=== PATIENT | female | born 1950 | race Caucasian/White ===

== ENCOUNTER → 2018-07-11 12:12 | Outpatient (CLI) | payer MEDICARE, SELFPAY ==
--- NOTE | 2018-07-11 12:27 | XR_ITS ---
XR knee LT 3V HISTORY: ITS.REASON: LT KNEE PAIN ORDERING PHYSICIAN: Khurram Melendez MD PATIENT AGE: 68 years COMPARISON: None FINDINGS: Mild to moderate osteoarthritic changes are present at the medial compartment and patellofemoral joint with a small knee joint effusion in the suprapatellar region. No fracture or dislocation. IMPRESSION: Mild to moderate osteoarthritis of the medial compartment and patellofemoral joint with a joint effusion
== END ==
PROVIDERS: PCP Family Medicine; Visit Provider Family Medicine
DX: M25.562 Pain in left knee (principal)
CPT/HCPCS: 73562

== ENCOUNTER → 2019-03-28 09:20 | Outpatient (CLI) | payer MEDICARE, SELFPAY ==
--- NOTE | 2019-03-28 09:27 | XR_ITS ---
XR knee LT 4V HISTORY: ITS.REASON: left knee pain ORDERING PHYSICIAN: Christoph Gooden MD PATIENT AGE: 68 years COMPARISON: 07/11/2018 FINDINGS: There are moderate to severe osteoarthritic changes of the medial compartment with mild osteoarthritis of the lateral compartment and patellofemoral joint. Bony spurring is noted there is a small suprapatellar effusion suspected. IMPRESSION: Moderate to severe osteoarthritis of the left knee. The joint space narrowing medially is more prominent on today's exam however, this study was performed with weightbearing as opposed to nonweightbearing on the previous exam.
== END ==
PROVIDERS: PCP Family Medicine; Visit Provider Orthopaedic Surgery
DX: M25.562 Pain in left knee (principal)
CPT/HCPCS: 73564

== ENCOUNTER 2019-07-27 09:07 | Outpatient (RCR) | payer MEDICARE, SELFPAY ==
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
== END 2019-07-27 09:10 | disposition home or self-care (01) ==
LOC: PT 09:07
PROVIDERS: PCP Family Medicine; Visit Provider Emergency Medicine
DX: T22.221A Burn of second degree of right elbow, initial encounter (principal)
CPT/HCPCS: 97162

== ENCOUNTER → 2019-08-08 10:51 | Outpatient (CLI) | payer MEDICARE, SELFPAY ==
--- NOTE | 2019-08-08 11:07 | ECG_ITS ---
APPROVED REPORT Exam: Resting ECG HR:75 bpm ECG Measurements Heart Rate 75 AXES PA 144 P 61 QRSd 86 QRS 8 QT 386 T 19 QTc 431 <Conclusion> Normal sinus rhythm Normal ECG Electronically signed by : Andrés Levine, 08/08/2019 19:57:12
--- NOTE | 2019-08-08 11:10 | XR_ITS ---
PROCEDURE: XR CHEST 2V CLINICAL HISTORY: COUGH Cough, shortness of air COMPARISON: No exams were available for comparison FINDINGS: The cardiomediastinal silhouette and pulmonary vascularity are within normal limits. The lungs are clear without infiltrates, suspicious nodules, or pleural effusions. There is mild thoracic kyphosis with minimal wedging involving T5-T6 and T7 which may be chronic. IMPRESSION: No acute finding. Mild thoracic kyphosis Dictated by: Jeffrey Diaz MD 08/08/2019 17:01 Electronically signed by Jeffrey Diaz MD in [place] 08/08/2019 17:01
== END ==
PROVIDERS: PCP Family Medicine; Visit Provider Family Medicine
DX: Z01.818 Encounter for other preprocedural examination (principal)
CPT/HCPCS: 71046; 93005

== ENCOUNTER → 2019-08-30 12:16 | Outpatient (CLI) | payer MEDICARE, SELFPAY ==
[2019-08-30 12:20] LABS: Microscopic, Urine URINE MICROSCOPIC (MICROSCOPIC)
--- NOTE | 2019-08-30 12:28 | XR_ITS ---
PROCEDURE: XR KNEE LT 4V CLINICAL INDICATION: OSTEOARTHRITIS, KNEE PAIN COMPARISON: [id number] XR knee LT 3V from 07/11/2018 FINDINGS: No fracture or dislocation. No lytic or blastic change. There is normal mineralization. There is severe narrowing of the medial joint compartment with borderline mild varus angulation along with medial femoral condyle and small medial tibial plateau spur. Other findings:There is mild increased density in the suprapatellar bursa. IMPRESSION: Medial compartment osteoarthritis with mild varus angulation. Small joint effusion. Dictated by: Davis Laureano 08/30/2019 12:58 Electronically signed by Davis Laureano in [place] 08/30/2019 12:58
[2019-08-30 13:05] LABS: Basophils % 0.3 % (0.1-2.0); Eosinophils % 0.1 % (0.1-12.0); Hematocrit 47.4 % (37.0-47.0); Hemoglobin 14.9 g/dL (12.2-16.2); Lymphocytes # 1.4 K/mm3 (0.7-4.5); Lymphocytes % 29.1 % (10-50); Mean Corpuscular HGB Conc 31.4 g/dL (31.8-35.4); Mean Corpuscular Hemoglobin 30.2 pg (27.0-31.2); Mean Platelet Volume 8.1 fl (7.4-10.4); Monocytes # 0.3 K/mm3 (0.1-1.0); Monocytes % 6.7 % (1.7-9.3); Neutrophils % 63.9 % (37.0-80.0); Platelet Count 291 K/mm3 (142-424); Red Blood Count 4.94 M/mm3 (4.20-5.40); Red Cell Distribution Width 13.9 % (11.5-17.5); White Blood Count 4.7 K/mm3 (4.8-10.8)
[2019-08-30 13:59] LABS: Appearance,Urine CLEAR (Clear); Bilirubin,Urine Negative (Negative); Blood, Urine Negative (Negative); Color,Urine YELLOW (Yellow); Glucose,Urine (UA) Negative (Negative); Ketones,Urine Negative (Negative); Leukocyte Esterase,Urine Negative (Negative); Nitrate,Urine Negative (Negative); Protein,Urine Negative (Negative); Urobilinogen,Urine 0.2 EU/dl (0.2)
[2019-08-30 14:15] LABS: Alanine Aminotransferase 19 U/L (12-78); Albumin Level 4.6 gm/dL (3.4-5.0); Albumin/Globulin Ratio 1.5 (1.1-1.8); Alkaline Phosphatase 78 U/L (46-116); Anion Gap 14.7 mEq/L (5-15); Aspartate Amino Transferase 17 U/L (15-37); Bilirubin,Total 0.8 mg/dL (0.2-1.0); Blood Urea Nitrogen 16 mg/dL (7-18); Calcium 8.7 mg/dL (8.5-10.1); Carbon Dioxide 29 mmol/L (21.0-32.0); Chloride 101 mmol/L (98-107); Creatinine,Serum 0.74 mg/dL (0.55-1.02); Estimated Glomerular Filt Rate 77 ml/min (>60); GFR (African American) 94 ML/MIN (>60); Globulin 3.1 gm/dl (1.3-3.2); Glucose 92 mg/dL (74-106); Potassium 3.7 mmoL/L (3.5-5.1); Sodium 141 mmol/L (136-145); Total Protein,Serum 7.7 gm/dL (6.4-8.2)
[2019-08-30 14:42] LABS: Squamous Epithelial Cell,Urine Occasional #/hpf (0-5); WBC,Urine Occasional #/hpf (0-3)
[2019-08-30 14:43] LABS: Bacteria,Urine Trace /lpf
== END ==
PROVIDERS: Visit Provider Orthopaedic Surgery
DX: Z01.818 Encounter for other preprocedural examination (principal); M17.12 Unilateral primary osteoarthritis, left knee
CPT/HCPCS: 36415; 73564; 80053; 81001; 85025

== ENCOUNTER → 2019-09-09 10:12 | Outpatient (CLI) | payer MEDICARE, SELFPAY | PROVIDERS: Visit Provider Orthopaedic Surgery | DX: Z01.818 Encounter for other preprocedural examination (principal); M17.12 Unilateral primary osteoarthritis, left knee | CPT/HCPCS: 36415; 86850 ==

== ENCOUNTER 2019-09-11 07:42 | Observation (INO) ==
--- NOTE | 2019-09-11 08:35 | Progress Note ---
[facility] Anesthesia Checklist - Structural Data Admitted From: Home Planned Operative Procedure/s: l TKA Consent for Planned Operative Procedure(s) Verified: Yes - Additional verifications Anesthesia Reactions: No Hx Blood Transfusions: No Blood Transfusion Reaction: No - Airway Assessment C-Spine Mobility Assessed: Yes TMJ Mobility Assessed: Yes Dentition: Good Dentition - Neurological Assessment Level of Consciousness: Awake, Alert, Appropriate - Anesthesia Plan Anesthesia Risk discussed: Yes Anesthesia Plan: Verified ASA Class: II Anesthesia Type: General - Preoperative Comments Pre-Operative Comments: discussed fem sciatic block w pt, pt agrees to proceed [facility] History I have reviewed the patient's past medical history: Yes Medical History: Reports:: Cancer (left breast), Hyperlipidemia Denies:: Diabetes Mellitus Type 1, Diabetes Mellitus Type 2, Internal Pacemaker, Seizures *Have you ever received a pneumonia vaccine?: Yes *Have you received a flu vaccine this season?: No Other Medical History: Reports: Arthritis, Thyroid Disease. Denies: Blood Transfusion Reaction Anesthesia experience/problems:: none Laterality Cases: Right: Arthroscopy Knee, Lumpectomy Other Surgeries: Yes: Appendectomy, Cholecystectomy, Hysterectomy-Total. No: Pacemaker Amputation: No Fractures: No - *Social History Educational Level: Completed High School Smoking Status: Never smoker Alcohol Intake: never Substance Use Type: denies use *Occupational Status:: retired Housing: house Household Members: spouse *Travel in the last 8 weeks: None Family Hx:: No significant family history
--- NOTE | 2019-09-11 13:38 | Progress Note ---
[facility] Anesthesia Record Part I Intake, IV Amount: 3,000 Estimated blood loss (mL): 25 Urine output (mL): 400 Blood Pressure: 120/78 SaO2: 96 Pulse Rate: 89 Respiratory Rate: 12 Temperature: 97.5 F Patient is:: Awake, Stable Stable to PACU at:: 13:35
--- NOTE | 2019-09-11 13:38 | Progress Note ---
[facility] Anesthesia Record Part II Discharge Time: 13:35 Destination: floor PACU nurse assessment reviewed?: Yes Patient Condition:: Good Anesthesia Complications:: None Swallowing reflex intact?: Yes Cyanosis?: No
--- NOTE | 2019-09-11 14:53 | Operative Note ---
Date of procedure: 09/11/19 Pre-op Diagnosis:: Advanced osteoarthritis, left knee Post-op Diagnosis:: Same Procedure performed:: Cemented total knee arthroplasty, left Surgeon:: Christoph Gooden MD Railroad Signal Operator(s):: Ofelia Mcginnis VICE PRESIDENT:: Carlo Nicole Anesthesia: GETA, regional (Femoral and sciatic nerve blocks) Estimated blood loss (mL): 25 Clinical Note:: Patient is a 69-year-old female with end-stage osteoarthritis of the left knee with [id number] appearance over the medial compartment with a progressive varus deformity and flexion contracture presented with unremitting severe pain not relieved by conservative management. The pain is advanced to the point that it is becoming a hazard for her with risk of falling and injuring herself. A left total knee arthroplasty is indicated to relieve the pain, improve function, reduce the risk of falls and improve quality of life. Please refer to my office note for full details. Operative findings:: As noted on the preoperative evaluation, the knee joint had a 5 degrees of fixed flexion and fixed varus deformity. Preoperative knee range of flexion under anesthesia was 5-110 only. As seen on the x-rays, there are advanced degenerative changes over all 3 compartments with [id number] appearance over the medial compartment; the medial and patellofemoral compartments are the most severely involved of the 3 compartments. The menisci and cruciate ligaments are degenerate. There is extensive osteophyte formation over all 3 compartments. The intercondylar notch is almost obliterated and filled with osteophytes. Overall bone quality is good. Operative note:: On the day of the surgery the patient and her family were seen in the preoperative area. I have reviewed the clinical and x-ray findings with the patient. I again discussed the diagnosis, natural history and management options in detail including both nonsurgical and surgical. She has end-stage degenerative arthritis of her left knee and has failed to respond satisfactorily to conservative management so far and has opted for a left total knee arth roplasty. Her left knee joint is stiff and painful, and is limiting her mobility, ADLs and quality of life. Also her knee gives out and she is at risk of falls resulting in fractures. We again discussed the details of the procedure, risks and benefits and alternatives in detail. The complications discussed include but are not limited to infection, injury to nerves and blood vessels including injury to popliteal artery, injury to tendons and ligaments, DVT and PE, fat embolism, intraoperative fracture, limb length inequality, patella fracture, patellofemoral instability, patellar clunk syndrome, quadriceps and patellar tendon rupture, implant failure, component loosening, periprosthetic femur and tibia fractures, stiffness (arthrofibrosis), limp, incomplete relief of pain, incomplete functional recovery, likely need for further surgery in future including revision and anesthetic complications including heart attack, stroke and even . We also discussed about the likely need for blood transfusion and transfusion reactions. We discussed how any of these events can be devastating. We have discussed nonsurgical alternatives as well. Patient understands wishes to proceed with a left total knee arthroplasty and I believe that she is fully informed as to the risks, benefits, and alternatives including nonsurgical alternatives. We also discussed the postoperative course including the rehab and physical therapy required. She lives with her family and wants to go to go back home after surgery. A physical examination was performed and documented. Patient understood the risks, agreed to proceed with surgery, signed the consent form and no guarantees or assurances were given or implied. The limb was appropriately marked and initialed by me. The patient was then brought to the operating room and a general anesthesia was administered by the university manager. Prior to that she had femoral and sciatic nerve blocks in the pre-anesthetic area. The patient was then positioned supine on the operating table. All the bony prominences were appropriately padded. A well-padded tourniquet cuff was placed high over the upper thigh. The left knee was then prepped with isopropyl alcohol followed by chlorhexidine and draped in the usual sterile fashion. Prior to this, patient had used Hibiclens for a total of 5 days prior to the surgery and also used topical intranasal Bactroban. The entire operative team wore isolation suits and the Operating Room traffic was controlled. The skin incision was marked for a medial parapatellar approach to the knee joint. The entire operative site was sealed off with Ioban drape. A preprocedure timeout was performed as per hospital protocol. At the start of the procedure administration of prophylactic IV antibiotics (Ancef and vancomycin) was confirmed with the university manager. Also patient received 1 g of IV tranexamic acid before starting the procedure to reduce the postoperative blood loss. A preprocedure timeout was performed as per hospital protocol. The limb was exsanguinated with Esmarch bandage, the knee joint flexed beyond 90 and the tourniquet cuff was inflated to 325 mm Hg. Please see the nursing records for total tourniquet time. I then made a midline incision utilizing a #10 scalpel blade. Electrocautery was used to seal off subcutaneous vessels. The extensor mechanism was exposed, marked and a curvilinear incision made for a medial parapatellar approach using the scalpel blade. The patella was everted carefully and the fat pad resected to allow sufficient visualization of the proximal tibia. Extensive osteophyte formation was noted over all 3 compartments. The osteophytes were removed with rongeurs. The intercondylar notch was filled with osteophytes and the anterior cruciate ligament noted to be degenerate. The menisci were also degenerate and the anterior aspects of both menisci were resected. A medial release was performed with the knife and Brandie elevator. After finishing the medial release, I felt this to be somewhat more than what was needed. A step drill was used to open the intramedullary canal and the distal cutting guide was placed. The jig was pinned into position and the intramedullary guide rolando removed. The distal cut was made at 5 degrees of valgus and then the posterior referencing sizing jig was placed. The femur sized best at a size 7 femur for the Minnie persona system. Drill holes were made for the 4-in-1 cutting block in 3 degrees of external rotation. We then placed the 4-in-1 cutting block in position and the cross pins were added stabilizing the block. The abraham wing utilized to ensure notching of the anterior cortex would not occur. The anterior cut was made followed by the posterior cut then the posterior chamfer and finally the anterior chamfer cuts in that order. Soft tissue/collateral ligaments were protected throughout with careful retraction using the Z retractors. We checked for trueness of the cuts and then moved on to the tibia. The extra medullary guide was placed and aligned from the medial one third of the tibial tubercle down to the second metatarsal base. We pinned cutting block in position for minimal resection of the tibia from the medial side which was more severely involved with arthritis, checked the alignment, protected the soft tissues with appropriate retractors and resected with the Artesian saw. The resected tibial plateau articular surface was removed and sized it at a size E. We ensured correctness of the cut and correct posterior slope. We then checked the flexion and extension gaps and found them to be equal and well balanced. We trialed the femur and the tibia with a polyethylene insert and ranged the knee to ensure full flexion and extension and checked for ligamentous stability. We then everted the patella and measured the thickness with calipers. The patella measured 23 mm thick and a minimal resection (8mm) of the patella was carried out using the appropriate cutting guide. I then made the holes for a 3 pegged patellar button using the patella peg drill guide. We had lateralized the femur and medialized the patella intentionally for a better patellar tracking. We placed trial components and noted that a 14 mm polyethylene to fit best. This gave us appropriate range of motion with proper ligamentous stability. We allowed this to be free-floating and then checked it and made sure it was in appropriate position in relation to the tibial tubercle. We also used tibial alignment rolando to check for satisfactory position of the base plate and markings were made with electrocautery on the proximal tibia. We then elected to proceed with the box cut for a posterior stabilized femoral component. We placed the cutting jig for the box cut and perform the box cut using a reciprocating saw. I then completed the femoral preparation by making lug holes for the femoral component. We again trialed with the posterior stabilized polyethylene and found a 14 mm insert to fit best. This gave us appropriate range of motion with proper ligamentous stability in both flexion and extension. We then removed the trial components and using the laminar rn rehabilitation to distract the bones, we carefully resected the remaining portions of the medial and lateral menisci, removed the osteophytes from the posterior femoral condyles and the medial tibial plateau. I then pinned the tibial base plate to the top of the tibia in correct alignment and completed the drilling and broaching of the proximal tibia. We then removed the baseplate, placed an appropriately prepared bone plug into the hole in the distal femur. I then copiously irrigated the knee with pulse lavage and then dried the cut surfaces. We then cemented the tibial tray, the femoral component, and placed a 14 mm trial polyethylene insert and brought the knee into full extension. We then cemented the 3 pegged patella button and held it with a clamp. We allowed the cement to set and then inspected the knee joint and removed excess cement with an osteotome. We then placed the 14 mm definitive polyethylene tibial insert ensuring that the dovetails fit appropriately and that the polyethylene was down and seated into the tibial tray properly. The knee joint was put through range of motion and noted to be stable in both AP and ML direction; the patella was noted to be tracking appropriately with no thumb technique. The knee joint was then soaked with dilute Betadine (0.35 percent) solution for 3 minutes followed by suctioning of the solution and pulsatile lavage with the 1 L of normal saline. The tourniquet was deflated and hemostasis obtained with diathermy cautery. Another gram of tranexamic acid was given intravenously by the university manager at the time of deflating the tourniquet. The knee joint was again thoroughly irrigated with the pulse lavage and good hemostasis was confirmed before proceeding with wound closure. The capsule/extensor mechanism was closed with #1 Stratafix PDS running sutures ensuring a watertight closure. Next the subcutaneous tissue was closed with 2-0 Stratafix PDS running sutures. The skin was closed with subcuticular 3-0 Monocryl Stratafix sutures and Dermabond Prineo Skin Closure System. Sterile dressings were applied consisting of 4 x 4 gauze, ABDs, soft roll and secured in place with Bo wrap. No drains were placed. The patient was then transferred from the operating table onto the bed. The tibialis posterior and dorsalis pedis pulses were noted 2+ with good capillary refill in the foot. The patient was then reversed from the anesthetic and transported to the postoperative recovery area in a stable condition. Patient tolerated the procedure well and there were no immediate complications. The swab, needle and instrument counts were correct, according to the scrub team, at the end of the procedure. Portable x-rays of the left knee were obtained in the recovery area which showed the components were well fixed in a satisfactory position without any complications. The knee was placed in a knee immobilizer which should be continued when standing and walking, until she regains full quadriceps control. Postoperatively, institute and continue standard precautions and physical therapy for a standard total knee arthroplasty starting on postoperative day 1. Patient can be mobilized full weightbearing as tolerated. Implants: Minnie Persona, 5 degrees stemmed left tibial baseplate- size E Minnie Persona all poly-patellar component- 32 mm/8.5 mm Minnie Persona posterior stabilized standard femoral component, size 7 left Minnie Persona Vivacit-E highly cross-linked polyethylene posterior stabilized fixed bearing articular surface, left size E-F/PS x 14 mm Biomet Refobacin bone cement R x2. Industry sales representative door to door: Rob Camara (Minnie [employer]) Condition: stable Disposition: PACU Specimens:: None Complications:: None
--- NOTE | 2019-09-11 15:47 | Pharmacy Consult Notes ---
[facility] Pharmacy VTE Monitoring - Patient Demographics Admission date: 09/11/19 Report Date: 09/11/19 Time: 15:47 Allergies/Adverse Reactions: Patient Allergies No Known Allergies Allergy (Verified 09/08/19 14:27) Height: 1.7 m Weight: 85.23 kg - Prophylaxis VTE Prophylaxis Ordered?: Yes Types of VTE Prophylaxis: IPCS Thigh High, Pharmacological Pharmacologic Type: Other (XARELTO) - VTE Diagnosis Confirmed Treatment or plan recommended: Continue Current Treatment
[2019-09-12 06:14] LABS: Basophils % 0.2 % (0.1-2.0); Hematocrit 34.4 % (37.0-47.0); Hemoglobin 10.6 g/dL (12.2-16.2); Lymphocytes # 0.9 K/mm3 (0.7-4.5); Lymphocytes % 13.5 % (10-50); Mean Corpuscular HGB Conc 30.9 g/dL (31.8-35.4); Monocytes # 0.5 K/mm3 (0.1-1.0); Monocytes % 7.2 % (1.7-9.3); Neutrophils # 5.4 K/mm3 (1.8-7.8); Neutrophils % 79.1 % (37.0-80.0); Platelet Count 226 K/mm3 (142-424); Red Blood Count 3.55 M/mm3 (4.20-5.40); Red Cell Distribution Width 13.8 % (11.5-17.5); White Blood Count 6.9 K/mm3 (4.8-10.8)
[2019-09-12 06:23] LABS: Anion Gap 11.1 mEq/L (5-15); Calcium 8.1 mg/dL (8.5-10.1)
--- NOTE | 2019-09-12 16:55 | Progress Note ---
Subjective Date: 09/12/19 Time: 12:00 Principal diagnosis: Status post total knee arthroplasty, left Interval history: Patient is status post left total knee arthroplasty, postoperative day 1. Patient is lying down on the bed. Patient says she is doing well and reports that her pain is well controlled with medication. She says her nerve blocks did not last long and had significant pain yesterday after surgery. No history of any nausea or vomiting. No history of any cough, chest pain, shortness of breath or palpitations. Patient says she is eating and drinking well. She started physical therapy and has walked more than 50 feet with a walker. PN: Obj Ex Vital signs: Temp Pulse Resp BP Pulse Ox 98.7 F 93 H 17 101/52 L 94 L 09/12/19 16:00 09/12/19 16:00 09/12/19 16:00 09/12/19 16:00 09/12/19 16:00 Narrative: Laboratory Results - last 24 hr 09/12/19 05:30: WBC 6.9, RBC 3.55 L, Hgb 10.6 L, Hct 34.4 L, MCV 97.0, MCH 29.9, MCHC 30.9 L, RDW 13.8, Plt Count 226, MPV 9.0, Neut % (Auto) 79.1, Lymph % (Auto) 13.5, [place] % (Auto) 7.2, Eos % (Auto) 0.0 L, Baso % (Auto) 0.2, Neut # (Auto) 5.4, Lymph # (Auto) 0.9, [place] # (Auto) 0.5, Eos # (Auto) 0.0, Baso # (Auto) 0.0 09/12/19 05:30: Sodium 139, Potassium 4.1, Chloride 104, Carbon Dioxide 28, Anion Gap 11.1, BUN 12, Creatinine 0.82, Estimated Creat Clear 68, Estimated GFR 69, Est GFR ( Amer) 83, Glucose 119 H, Calcium 8.1 L Intake & Output 09/10/19 09/11/19 09/12/19 09/13/19 11:59 11:59 11:59 11:59 Intake Total 5127 / 5127 480 / 480 Output Total 850 / 850 Balance 4277 / 4277 480 / 480 Weight 185 lb 5 oz Exam: General appearance: alert, active, awake Cardiovascular: regular rate & rhythm, normal peripheral pulses; S1-S2 heard Respiratory: No respiratory distress noted, speaks in full sentences; lungs clear to auscultation; normal breath sounds ABD: soft and non tender; bowel sounds heard over all 4 quadrants Neuro: alert, awake, oriented x 3 Psych: normal mood and affect On examination of the lower extremities the limb lengths are equal. On examination of the left knee the dressings are clean, dry and intact. Calf is s oft and nontender. Distal pulses are 2+. Capillary refill is brisk. Sensation is intact to light touch throughout. She is actively moving the ankle, foot and the toes. - Urinary Catheter Management Logan Cath placed during this visit: yes Urethral indwelling: Yes Reason for continuing: Surgical procedure Insertion date: 09/11/19 Insertion time: 09:50 Progress Note: A&P (1) Osteoarthritis of left knee Status: Acute Current Visit: Yes (2) S/P total knee arthroplasty Status: Acute Current Visit: Yes (3) Hypothyroidism Status: Chronic Current Visit: Yes Assessment and Plan for All Diagnoses:: I have reviewed the clinical findings and progress with the patient and her . I have given her a paper copy of the postoperative x-rays. Advised her to avoid placing pillow behind the knee; use knee immobilizer when weightbearing and walking until she regains full quadriceps control and is able to actively straight leg raise. Continue PT/OT, standard protocol for a primary knee replacement. Discontinue IV fluids; continue DVT prophylaxis and as needed pain medication. Care management consult regarding discharge planning. Likely discharge home tomorrow if cleared by physical therapy.
--- NOTE | 2019-09-13 12:12 | Discharge Summary ---
General - General Admission date:: 09/11/19 Discharge date: 09/13/19 HPI HPI: Patient is a 69-year-old female with advanced degenerative joint disease of the left knee who is admitted to the hospital electively following an uncomplicated primary total knee arthroplasty on 09/11/2019. Prior to surgery patient had long-standing pain, stiffness and disability secondary to advanced degenerative arthritis in her left knee. She has not responded well to conservative management including NSAID, Tylenol, and intra-articular injections in the past. She is using assistive walking devices. Total knee arthroplasty is indicated to reduce the risk of falls, improve her pain and mobility and quality of life. The surgical and nonsurgical alternatives were discussed in detail with the patient as well as the risks and benefits of the surgery. She is fairly healthy and has a history of hypothyroidism and osteoarthritis. Hospital Course Hospital Course: Patient underwent an uncomplicated straightforward primary left total knee arthroplasty on 09/11/2019. Following surgery patient was admitted to hospital and progressed well without any complications. Her postoperative check x-ray was satisfactory with good alignment and fixation of the components. She progressed rapidly with physical therapy and was able to mobilize using a walker. After 2 days of hospital stay for observation, patient was discharged to home with self-care on 09/13/19. She is planning to do outpatient physical therapy at [facility]. At the time of discharge she has not yet regained good quadriceps control and is not able to actively straight leg raise. She has minimal pain and her pain is well controlled with as needed oral medication. The the incision is healthy and healing well. No signs of any erythema, induration or discharge noted. Patient was started on Xarelto 10 mg daily for DVT prophylaxis after surgery. Her neurovascular status in both lower extremities is intact. Pedal pulses 2+ bilaterally and fully sensate distally. No clinical evidence of DVT noted. Patient was cleared for discharge by physical therapy. On the day of discharge, the patient has been stable. Patient's vital signs have been stable throughout and she is afebrile at the time of discharge. She is being discharged home with family/self-care. She has outpatient physical therapy scheduled. Condition at discharge: improved and stable. Treatments and Procedures: Total knee arthroplasty, left knee; date of surgery 09/11/2019. Objective Vital signs: Temp Pulse Resp BP Pulse Ox 99.3 F 89 18 97/58 L 94 L 09/13/19 11:46 09/13/19 11:46 09/13/19 11:46 09/13/19 11:46 09/13/19 11:46 no acute distress, cooperative - *Routine HEENT Exam Head: Present: normocephalic, atraumatic Eye: Present: EOMI ENT: Present: mucous membranes moist - *Routine Neck Exam Present: supple, full ROM, trachea midline. Absent: lymphadenopathy - *Routine Respiratory Exam Present: CTA bilaterally - *Routine Cardiovascular Exam Present: RRR, Normal S1, Normal S2 - *Routine Abdominal Exam Present: soft, normoactive bowel sounds. Absent: tenderness - *Routine Extremities Exam Comments: On examination of the lower extremities the limb lengths are equal. On examination of the left knee the incision is clean, dry and healthy. No signs of infection or other complications are noted. There is minimal swelling and ecchymosis around the knee as to be expected at this stage. Knee range of movements is 5 to 80 degrees of flexion. She has not yet regained good quadriceps activation and is not about able to actively straight leg raise. Calf is soft and nontender. Distal pulses are 2+. Capillary refill is brisk. Sensation is intact to light touch throughout. She is actively moving the ankle, foot and the toes. No signs of DVT noted. - Routine Back/Spine/Pelvis Exam Back/Spine: Absent: CVA tenderness, vertebral tenderness - *Routine Skin Exam Present: intact, warm, normal turgor. Absent: rash - *Routine Neurological Exam Present: alert, oriented X3, CN II-XII intact, moving all extremities - Routine Psychiatric Exam Present: normal affect, normal thought process, cooperative DS: Diagnosis - Discharge Diagnosis (1) Osteoarthritis of left knee Status: Chronic (2) S/P total knee arthroplasty Start date: 09/11/19 Status: Acute (3) Hypothyroidism Status: Chronic Discharge Plan - Patient Discharge Instructions ACTIVITY: Continue current activity, Ambulate as tolerated DIET: advance to your usual diet Patient Instructions: DI for Knee Replacement, DI for Surgical Site Infection - Follow up Plan Follow up with: Christoph Gooden MD [Staff Physician] - 09/19/19 3:00 pm Disposition: Home, Self-Alf Medications: Home Medications Medication Instructions Recorded Confirmed Type levothyroxine 75 mcg capsule 75 mcg PO DAILY 03/31/19 09/08/19 History nabumetone 500 mg tablet 500 mg PO BID 03/31/19 09/08/19 History Ferrous Sulfate [Ferrous Sulfate 325 mg PO DAILY #90 tab 09/13/19 Rx 325mg Tablet] Hydrocod/Acet 5/325 mg [Cummings 1 - 2 tab PO Q4HP PRN #60 tab 09/13/19 Rx 5/325mg tablet] Rivaroxaban [Xarelto 10mg tablet] 10 mg PO QPMWM #14 tab 09/13/19 Rx Sennosides [Senokot 8.6mg tablet] 8.6 mg PO BIDP PRN #30 tab 09/13/19 Rx Prescriptions/Medication Reconciliation: New Ferrous Sulfate [Ferrous Sulfate 325mg Tablet] 325 mg PO DAILY #90 tab Sennosides [Senokot 8.6mg tablet] 8.6 mg PO BIDP PRN #30 tab PRN Reason: Constipation Rivaroxaban [Xarelto 10mg tablet] 10 mg PO QPMWM #14 tab Hydrocod/Acet 5/325 mg [Cummings 5/325mg tablet] 1 - 2 tab PO Q4HP PRN #60 tab PRN Reason: Moderate To Severe Pain Continued levothyroxine 75 mcg capsule 75 mcg PO DAILY Held nabumetone 500 mg tablet 500 mg PO BID - Problem Reconciliation Problems Reviewed?: Yes - Additional Information Additional Information: Our recommendations on discharge include physical therapy with weightbearing as tolerated and range of motion exercises of the left knee with emphasis on full extension and regaining flexion gradually. Patient will have outpatient physical therapy and has an appointment scheduled for this. Note is made that the patient easily extends the knee to 0 degrees and flexes to 140 degrees while she was under anesthesia for the total knee arthroplasty with the wound closed. I have strongly advised her not to place any pillow behind the knee. But she can place a pillow under the ankle thus allowing gravity/weight of the leg help the knee into full extension. Patient was also advised to keep the leg elevated and ice the knee/use Polar pack on a regular basis. At this stage it is permissible to take a shower and allow the incision to get wet with shower water. After padding the area dry, the wound can be left open. Routine application of occlusive dressings is not needed unless clinically indicated. Patient has Dermabond Prineo dressing in place and we have given her information leaflet regarding how to manage it at home. Patient will follow up with me in the office in approximately 1 week for wound check. Recommend 10 mg of Xarelto p.o. daily for 2 weeks for DVT prophylaxis. Please feel free to call our office at [phone] or via the hospital tape keller operator [phone] for any orthopaedic questions or concerns.
== END 2019-09-13 14:57 | disposition home or self-care (01) ==
LOC: OR 07:42 → 2ND 07:48 → INTOOBSV 07:48 → 2ND 14:13
PROVIDERS: ADMIT Orthopaedic Surgery; ATTEND Orthopaedic Surgery
CPT/HCPCS: 36415; 73560; 80048; 81001; 85025; 90686; 96374; 97110; 97116; 97161; 97166; 97530; C1713; C1776; G0378; J2405; J3370

== ENCOUNTER → 2019-09-19 09:57 | Outpatient (CLI) | payer MEDICARE, SELFPAY ==
--- NOTE | 2019-09-19 10:00 | XR_ITS ---
PROCEDURE: XR KNEE LT 2V CLINICAL INDICATION: sp 1 week lt tka Follow-up total knee arthroplasty COMPARISON: [id number] XR knee LT 3V from 07/11/2018 XR KNEE LT 4V from 08/30/2019 XR KNEE LT 2V from 09/11/2019 FINDINGS: Status post total knee arthroplasty. There is good alignment with no evidence of orthopedic complication. Postsurgical gas has resolved. Other findings:None. IMPRESSION: Good alignment status post total knee arthroplasty Dictated by: Jeffrey Diaz MD 09/19/2019 17:40 Electronically signed by Jeffrey Diaz MD in [place] 09/19/2019 17:40
== END ==
PROVIDERS: PCP Family Medicine; Visit Provider Orthopaedic Surgery
DX: M25.562 Pain in left knee; Z96.652 Presence of left artificial knee joint
CPT/HCPCS: 73560

== ENCOUNTER 2019-09-19 13:00 | Outpatient (RCR) | payer MEDICARE, SELFPAY | END 2019-09-19 13:20 | disposition home or self-care (01) | LOC: PT 13:00 | PROVIDERS: Visit Provider Orthopaedic Surgery | DX: M25.562 Pain in left knee (principal); Z96.652 Presence of left artificial knee joint | CPT/HCPCS: 97760 ==

== ENCOUNTER → 2019-10-30 11:19 | Outpatient (CLI) | payer MEDICARE, SELFPAY ==
--- NOTE | 2019-10-30 11:25 | XR_ITS ---
PROCEDURE: XR KNEE LT 2V CLINICAL INDICATION: sp LT TKA; dos 09/11/19 Follow-up total knee replacement COMPARISON: [id number] XR knee LT 3V from 07/11/2018 XR KNEE LT 4V from 08/30/2019 XR KNEE LT 2V from 09/11/2019 XR KNEE LT 2V from 09/19/2019 FINDINGS: Status post total knee replacement with good alignment. No fracture or dislocation. No orthopedic complications Other findings:None. IMPRESSION: Status post total knee replacement with good alignment Dictated by: Jeffrey Diaz MD 10/30/2019 17:49 Electronically signed by Jeffrey Diaz MD in [place] 10/30/2019 17:49
== END ==
PROVIDERS: PCP Family Medicine; Visit Provider Orthopaedic Surgery
DX: Z96.652 Presence of left artificial knee joint (principal); M25.562 Pain in left knee
CPT/HCPCS: 73560

== ENCOUNTER 2019-12-01 10:00 | Outpatient (RCR) | payer MEDICARE, SELFPAY ==
--- NOTE | 2019-09-15 10:44 | HMH.PTOPEV ---
PT Outpatient Evaluation Rehab PT Outpatient Evaluation Start: 09/15/19 10:31 Freq: Status: Active Protocol: Document 09/15/19 10:31 GALLITO (Rec: 09/15/19 10:43 GALLITO [id number]) Electronically Signed By Ji Hodge, PT 09/15/19 10:31 Outpatient Therapy Subjective History Subjective History Patient is a 69 year old female presenting to outpatient PT with reports of L post-sugical knee pain S/P L TKA performed 09/11/19 (4d S/ P). Pt reports hx of chronic knee pain starting approximately 6-7 years ago of insidious onset. Pt was admitted to [facility] for 2 days S/P for observation. Reviewed journal entry audit clerk TKA protocol, signs of infection and progression of HEP. Comorbidites include hypothyroidism, HTN and OA. Chief Complaint Pain,Stiff,Swelling,Weakness Symptom Type Ache,Burning Symptoms Relieved By Rest/Positioning,Ice, Prescription Meds Symptoms Aggravated By Standing,Physical Activity, Walking Prior Functional Limitations Housework,Standing,Squatting, Recreation Activity,Walking, Stairs Current Functional Limitations Housework,Sleeping,Standing, Squatting,Recreation Activity, Walking,Stairs,Balance Symptom Description Constant but Variable Level of pain today (0-10) 2 Pain scale - at its best (0-10) 2 Pain scale - at its worst (0-10) 10 Hip/Knee Eval Gait Observation General Gait Pattern Observation Antalgic Gait,Decrease Weight Bear (L) Assistive Device Assistive Devices Rolling / Wheeled Walker Palpation Tenderness left Knee Palpation Finding Tenderness Knee Palpation Overall Comment L medial compartment MMT Hip Strength Reason Not Measured Orthopedic Precautions Knee Strength Reason Not Measured Orthopedic Precautions ROM Hip ROM Reason Not Measured Within Functional Limits Knee Extension Active Range of Motion ( -4 degrees) Knee Extension Passive Range of Motion ( 0 degrees) Knee Flexion Active Range of Motion ( 64 degrees) Knee Flexion Passive Range of Motion ( 84 degrees) Knee ROM Limitations Soft Tissue Tightness Effusion joint ef
--- NOTE | 2019-11-01 10:39 | HMH.RHREAS ---
Rehab Reassessment Rehab OP Re-assessment Start: 11/01/19 09:16 Freq: Status: Active Protocol: Document 11/01/19 09:16 GALLITO (Rec: 11/01/19 10:39 GALLITO [id number]) Electronically Signed By Ji Hodge, PT 11/01/19 09:16 Rehab Re-assessment Subjective Subjective Pt reports 60% improvement since start of care. Objective Objective Notes PROM: 0-110 AROM: -4-102 MMT: hip flexion 4+/5; abd 4+/ 5; ext 4+/5; add 4/5; ER/IR 4+ /5 knee ext 4+/5; flexion 4+/5 Neuro WNL Special tests: negative Assessment Progress Assessment Progressing as Expected Assessment Notes Pt progressing well with Rx. She has been seen in PT for 14 visits to date. Rx has consisted of LLE strengthening , mobility and modalities for pain/inflammation. She continues to have moderate discomfort with manual therapy . She continues to present with difficulty with all standing/ambulatory activities resulting in functional limitations with household and self-care activites. She currently still requires a SPC for ambulation and safety. Patient goals met STG's Goals Not Met LTG's Revised Goals NA Plan Plan Continue with POC Frequency of Therapy 2x/week Duration of therapy 4 weeks. Time and Billing Re-Eval Time 15 Re-Eval Billing Units 1 PHYSICIAN CERTIFICATION: I certify the specified therapy services for [facility] Viera are required, authorized, and reviewed every 30 days.
== END 2019-12-01 10:05 | disposition home or self-care (01) ==
LOC: PT 10:00
PROVIDERS: PCP Family Medicine; Visit Provider Orthopaedic Surgery
DX: M17.12 Unilateral primary osteoarthritis, left knee (principal); Z96.652 Presence of left artificial knee joint
CPT/HCPCS: 97010; 97014; 97016; 97033; 97110; 97140; 97163; 97164; G0283

== ENCOUNTER 2020-04-13 11:44 | Emergency (ER) | payer MEDICARE, SELFPAY ==
[2020-04-13 11:45] VITALS: BP 131/85; PULSE 97; RESP 16; TEMP 37.1; O2SAT 96; BMI 24.3
[2020-04-13 12:03] VITALS: BMI 24.3
--- NOTE | 2020-04-13 12:03 | CT_ITS ---
PROCEDURE: CT HEAD/BRAIN WO CON Patient Age:69Y CLINICAL INDICATION: FALL head trauma. Struck with knot on left forehead. No LOC Left mastectomy presumably for breast cancer 35 years ago COMPARISON: CT CERVICAL SPINE WO CON from 04/13/2020 TECHNIQUE: No IV contrast. Standard axial images were obtained. All CT scans at the facility use one or more dose reduction, viz: automated exposure control, ma/kV adjustment per patient size (including targeted exams where dose is matched to indication, i.e. head), or iterative reconstruction technique. . FINDINGS: No acute intracranial findings. No intracranial hemorrhage. Minimal cerebral atrophy age-appropriate No hydrocephalus.The ventricles and basal cisterns appear clear and satisfactory. No mass or midline shift nor mass effect. No subdural or extra-axial fluid collection is evident. Posterior fossa unremarkable. Small focal hematoma with soft tissue swelling is seen at the far lateral left forehead. No underlying skull fracture. Hyperostosis frontalis interna noted.. Slight additional density skull bone at lateral left frontal bone along the anterior aspect superior coronal suture noted. Most likely this may reflect mild hyperostosis adjacent and related to the coronal suture with somewhat similar sclerosis adjacent to lambdoid suture. No expansion to further suggest additional additional blastic bone abnormality at this point, but ongoing mammography should be encouraged with given history . Nomastoid effusions. Mastoid air cells are well developed and clear. Middle ear clear. IAC's symmetric. Nosinus air-fluid level. Visualized portions of the paranasal sinuses and orbits unremarkable. IMPRESSION: No acute intracranial findings. Brain unremarkable for age Small focal scalp hematoma and swelling at the far lateral left forehead. No associated underlying skull fracture.. Benign hyperostosis frontalis interna . Minor asymmetric area increased bone density in superior most frontal bone adjacent to coronal suture-most likely reflects region of relative hyperostosis along the coronal suture. Dictated by: Melchor Weaver MD 04/13/2020 13:02 Electronically signed by Melchor Weaver MD in [place] 04/13/2020 13:02
--- NOTE | 2020-04-13 12:03 | CT_ITS ---
PROCEDURE: CT CERVICAL SPINE WO CON Patient Age:69Y CLINICAL INDICATION: FALL. Struck head with not left forehead. Head pain. No LOC. Neck discomfort COMPARISON: CT HEAD/BRAIN WO CON from 04/13/2020 TECHNIQUE: No IV contrast Helical axial images obtained with sagittal and coronal reformats. All CT scans at the facility use one or more dose reduction, viz: automated exposure control, ma/kV adjustment per patient size (including targeted exams where dose is matched to indication, i.e. head), or iterative reconstruction technique. The FINDINGS: No fracture nor subluxation seen at cervical spine. Normal prevertebral soft tissues.. Satisfactory alignment. No significant subluxation. Multilevel degenerative disc changes. Degenerative disc space narrowing most evident at C4/5 and to less degree C5/6. C4/5. Uncovertebral joint hypertrophy to the right. Degenerative cystic features inferior aspect C4 vertebra adjacent endplate reflecting disc space narrowing pronounced to the right at this level. C5/6 disc space narrowing posteriorly. Minor uncovertebral joint hypertrophy slightly more evident to the right. Again degenerative subchondral cyst inferior C5 just adjacent to the C5/6 endplate Facets with normal relationships and only mild degenerative changes. Neural foramen and vertebral bodies intact. Normal C1/C2 relationships. Apices of lungs are clear with no acute findings. Minor chronic change lung apices. Scattered nonspecific reactive nodes neck, with old benign appearing postinflammatory calcification at slight more generous left palatine tonsil.. Not of concern. IMPRESSION: Cervical spine intact with no acute fracture nor subluxation. Minimal degenerative changes C-spine,-as detailed in body of report. Dictated by: Melchor Weaver MD 04/13/2020 12:58 Electronically signed by Melchor Weaver MD in [place] 04/13/2020 12:58
--- NOTE | 2020-04-13 13:00 | HMH.EDFALL ---
ED Disposition Clinical Impression: Contusion Disposition: Home, Self-Care Condition on Discharge: Good Instructions: How to Prevent Falls Referrals: Khurram Melendez MD [Primary Care Provider] - - Critical Care Critical Care Time: No Attestation: On 04/13/20, the high probability of a clinically significant, sudden or life threatening deterioration of the following system(s) required my full and direct attention, intervention and personal management. The time I documented below is in addition to time spent performing reported procedures but includes the following listed in this critical care notation. Medical Decision Making - Medical Records Medical records reviewed: Yes: I reviewed the patient's medical records. - Shalom Inquiry Pt receiving controlled substance: No Vital Signs: 04/13/20 11:45 Temperature 98.7 F Temperature Source Oral Pulse Rate [Radial] 97 H Respiratory Rate 16 Blood Pressure [Right Arm] 131/85 Blood Pressure Mean [Right Arm] 100 Blood Pressure Source [Right Arm] Automatic Cuff Blood Pressure Position [Right Arm] Sitting 02 Sat by Pulse Oximetry 96 Oxygen Delivery Method Room Air - Lab Data Lab results reviewed: Yes: I reviewed the patient's lab results. Orders (Tests/Meds): ORDERS Category Date Time Status CT cervical spine wo con Stat Cat Scan 04/13/20 12:[address] head/brain wo con Stat Cat Scan 04/13/20 12:03 Taken - CT Data CT Scan: Head Time Received: 13:06 Preliminary Findings: Normal/NAD Fall HPI - General Chief Complaint: Fall Stated Complaint: AO 04/13/20 11:30 injury to head Time Seen by Provider: 04/13/20 13:00 Mode of Arrival: Ambulatory Source of Information: Patient Limitations: No Limitations Description of Symptoms (Recalled from ER Triage Doc. by RN): Walking round the driveway and tripped and fell. Hit head on concrete. No LOC. - History of Present Illness HPI Narrative: 69-year-old female presents the ED after a fall at home. Apparently she was walking around the corner outside she slipped on some uneven ground and fell. She stated that she tried not to land on her left knee because she just had a knee replacement 6 months ago and so she ended up hitting her head. Patient denied any loss of consciousness. Patient denied any loss of balance. Patient also denied any headache. - Related Data Home Medications Medication Instructions Recorded Confirmed levothyroxine 75 mcg capsule 75 mcg PO DAILY 03/31/19 12/12/19 nabumetone 500 mg tablet 500 mg PO BID 03/31/19 12/12/19 Previous Rx's Medication Instructions Recorded Ferrous Sulfate [Ferrous Sulfate 325 mg PO DAILY #90 tab 09/13/19 325mg Tablet] hydrocodone 5 mg-acetaminophen 325 1 tab PO Q8H PRN #30 tab 10/11/19 mg tablet Allergies Allergy/AdvReac Type Severity Reaction Status Date / Time No Known Allergies Allergy Verified 12/12/19 11:22 [facility] History - Hepatitis A Screen Drug use history?: No High risk sexual behaviors?: No History of sexually transmitted infection?: No Currently employed?: No Childcare worker?: No Do you have indoor plumbing?: Yes Do you have electricity?: Yes Attestation statement:: This patient has been screened for Hepatitis A risk factors. I have reviewed the patient's past medical history: Yes Medical History: Reports:: Cancer, Hyperlipidemia Denies:: Diabetes Mellitus Type 1, Diabetes Mellitus Type 2, Internal Pacemaker, Seizures Other Medical History: Reports: Arthritis, Thyroid Disease. Denies: Blood Transfusion Reaction Laterality Cases: Left: Mastectomy, Right: Arthroscopy Knee, Breast Biopsy, Lumpectomy Other Surgeries: Yes: Appendectomy, Cholecystectomy, Hysterectomy-Total. No: Pacemaker Amputation: No Fractures: No - Social History Educational Level: Completed High School Smoking Status: Never smoker Alcohol Intake: never Substance Use Type: denies use Occupational Status: disabled Housing: house
[2020-04-13 13:28] VITALS: BP 131/85; PULSE 97; RESP 16; TEMP 37.1; O2SAT 96
== END 2020-04-13 13:30 | disposition home or self-care (01) ==
PROVIDERS: Emergency Provider Family Medicine; PCP Family Medicine
DX: S00.03XA Contusion of scalp, initial encounter (principal); W01.0XXA Fall on same level from slipping, tripping and stumbling without subsequent striking against object, initial encounter; Y92.014 Private driveway to single-family (private) house as the place of occurrence of the external cause; E78.5 Hyperlipidemia, unspecified; E03.9 Hypothyroidism, unspecified; Z90.49 Acquired absence of other specified parts of digestive tract; Z90.79 Acquired absence of other genital organ(s); Z79.899 Other long term (current) drug therapy
CPT/HCPCS: 70450; 72125; 99282

== ENCOUNTER → 2020-04-18 08:55 | Outpatient (CLI) | payer MEDICARE, SELFPAY ==
--- NOTE | 2020-04-18 08:58 | XR_ITS ---
PROCEDURE: XR KNEE LT 2V CLINICAL INDICATION: left total knee Follow-up knee replacement COMPARISON: XR KNEE LT 4V from 08/30/2019 XR KNEE LT 2V from 09/11/2019 XR KNEE LT 2V from 09/19/2019 XR KNEE LT 2V from 10/30/2019 FINDINGS: Good alignment status post total knee replacement. No evidence of orthopedic complication. No acute fracture or dislocation. No lytic or blastic change. IMPRESSION: Good alignment status post total knee replacement Dictated by: Jeffrey Diaz MD 04/18/2020 09:29 Electronically signed by Jeffrey Diaz MD in [place] 04/18/2020 09:29
== END ==
PROVIDERS: PCP Family Medicine; Visit Provider Orthopaedic Surgery
DX: M25.562 Pain in left knee; Z96.652 Presence of left artificial knee joint
CPT/HCPCS: 73560

== ENCOUNTER → 2020-09-09 11:18 | Outpatient (CLI) | payer MEDICARE, SELFPAY ==
--- NOTE | 2020-09-09 11:22 | XR_ITS ---
PROCEDURE: XR KNEE LT 2V CLINICAL INDICATION: sp lt tka Follow-up knee replacement COMPARISON: CR XR KNEE LT 2V from 09/11/2019 DX XR KNEE LT 2V from 09/19/2019 CR XR KNEE LT 2V from 10/30/2019 CR XR KNEE LT 2V from 04/18/2020 FINDINGS: No fracture or dislocation. No lytic or blastic change. There is normal mineralization. Good alignment status post total knee replacement. No evidence of orthopedic complication. No acute fracture or dislocation. No lytic or blastic change. Other findings:None. IMPRESSION: Good alignment total knee replacement Dictated by: Jeffrey Diaz MD 09/09/2020 12:28 Jeffrey Diaz MD in [place] 09/09/2020 12:28
== END ==
PROVIDERS: PCP Family Medicine; Visit Provider Orthopaedic Surgery
DX: Z09 Encounter for follow-up examination after completed treatment for conditions other than malignant neoplasm (principal); M25.562 Pain in left knee; Z96.652 Presence of left artificial knee joint
CPT/HCPCS: 73560

== ENCOUNTER → 2021-08-11 11:03 | Outpatient (CLI) | payer MEDICARE, SELFPAY | PROVIDERS: Visit Provider Surgery | DX: Z01.812 Encounter for preprocedural laboratory examination (principal); Z20.822 Contact with and (suspected) exposure to COVID-19; Z12.11 Encounter for screening for malignant neoplasm of colon | CPT/HCPCS: C9803; U0003; U0005 ==

== ENCOUNTER 2021-08-13 07:24 | Day surgery (SDC) | payer MEDICARE, SELFPAY ==
[2021-08-11 14:56] VITALS: BMI 28.5
[2021-08-13 07:54] VITALS: PULSE 91; RESP 18; TEMP 36.9; O2SAT 98
[2021-08-13 08:12] VITALS: O2SAT 98
--- NOTE | 2021-08-13 08:52 | HMH.SCOPE ---
- Procedure: Date: 08/13/21 Patient Date of :: 1950 Procedure Performed:: Colonoscopy with polypectomy by snare x2 Indications:: Patient is a 71-year-old female who presents for colonoscopy. Primary care provider is Khurram Melendez MD. Patient's sister was diagnosed with colon cancer about 6 or 7 months ago. She also has a nephew that had colon cancer. Other cancers tend to run in the family. She did have a colonoscopy at least 6 years ago. Performing Provider:: Sal Dinero MD Referring Provider:: Khurram Melendez MD Sedation:: MAC sedation Procedure:: Patient was taken to endoscopy procedure room. She was positioned in lateral decubitus position. Adequate intravenous sedation was achieved with anesthesia titration of propofol. Variable stiffness Olympus colonoscope was inserted via the anus. Was advanced to the cecum with some minor difficulty due to floppiness and redundancy of the sigmoid colon. Ileocecal valve was clearly identified. Within the cecum she had a small adenomatous appearing 3 or 4 mm polyp removed with cold cutting snare. In the ascending colon there was a small to moderate approximately 6 mm polyp removed with cold cutting snare. Base of the polyp was biopsied with biopsy forceps. Hemoclip was deployed at the polypectomy site for good hemostasis. There was noted to be a submucosal lipoma in the ascending colon. Colonoscope was withdrawn through the remainder of the colon. She had significant sigmoid diverticulosis with chronic scarring but no evidence of any active diverticulitis. Retroflexion within the rectum revealed nonbleeding internal hemorrhoids. Colonoscope was withdrawn. Findings:: Adenomatous appearing polyps in the ascending and cecum Ascending colon submucosal lipoma Significant sigmoid diverticulosis Recommendations:: Pending the pathology likely repeat colonoscopy 3 years Complications:: None immediately apparent Estimated blood obtained (mL): 4
[2021-08-13 08:54] VITALS: BP 90/54; PULSE 80; RESP 18; TEMP 36.4; O2SAT 95
[2021-08-13 09:04] VITALS: BP 86/56; PULSE 81; RESP 18; TEMP 36.3; O2SAT 96
[2021-08-13 09:14] VITALS: BP 93/47; PULSE 93; RESP 18; O2SAT 96
[2021-08-13 09:34] VITALS: BP 120/84; PULSE 84; RESP 18; O2SAT 96
--- NOTE | 2021-08-13 10:05 | HMH.ANESCL ---
[facility] Anesthesia Checklist - Patient Identification Patient Identification: Arm Band, Verbal (Name & ) - Structural Data Admitted From: Long-term Nursing Facility Planned Operative Procedure/s: egd Consent for Planned Operative Procedure(s) Verified: Yes Verified Documents: History and Physical - NPO Status Verified Time NPO: 00:00 - Additional verifications Patient : No Anesthesia Reactions: No Hx Blood Transfusions: No Blood Transfusion Reaction: No Cephalosporin Allergy: No Previous Colonoscopy: No - Cardiovascular Assessment Heart Sounds: S1 & S2 Pulse Strength: Baseline Pulse Rhythm: Irregular Peripheral Edema: No - Airway Assessment C-Spine Mobility Assessed: Yes TMJ Mobility Assessed: Yes Dentition: Edentulous - Neurological Assessment Level of Consciousness: Awake, Alert, Appropriate Hx Seizures: No Numbness or tingling in extremities: No - Genitourinary Assessment 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 Denies: Blood Transfusion Reaction Anesthesia experience/problems:: none Laterality Cases: Left: Mastectomy, Right: Arthroscopy Knee, Breast Biopsy, Lumpectomy Other Surgeries: Yes: Appendectomy, Cholecystectomy, Colonoscopy, Hysterectomy-Total. No: Pacemaker Amputation: No Fractures: No - *Social History Last grade of school completed: High school graduate Smoking Status: Never smoker Alcohol Intake: never Substance Use Type: denies use *Occupational Status:: retired Housing: house Household Members: spouse *Travel in the last 8 weeks: None Family Hx:: Non-contributory
== END 2021-08-13 09:40 | disposition home or self-care (01) ==
LOC: OUTP 07:26
PROVIDERS: PCP Family Medicine; Visit Provider Surgery
PROC: 0DJD8ZZ Inspection of Lower Intestinal Tract, Via Natural or Artificial Opening Endoscopic (ICD-10-PCS; principal; 2021-08-13 08:30)
DX: Z12.11 Encounter for screening for malignant neoplasm of colon (principal); K57.32 Diverticulitis of large intestine without perforation or abscess without bleeding; Z80.0 Family history of malignant neoplasm of digestive organs; K63.5 Polyp of colon; D17.79 Benign lipomatous neoplasm of other sites; Z80.9 Family history of malignant neoplasm, unspecified; E78.5 Hyperlipidemia, unspecified; M19.90 Unspecified osteoarthritis, unspecified site; Z90.49 Acquired absence of other specified parts of digestive tract; E03.9 Hypothyroidism, unspecified; M17.12 Unilateral primary osteoarthritis, left knee; Z79.899 Other long term (current) drug therapy
CPT/HCPCS: 45385; 88305

== ENCOUNTER 2023-11-17 19:28 | Emergency (ER) | payer MEDICARE, SELFPAY ==
[2023-11-17 19:40] VITALS: BP 142/77; PULSE 100; RESP 18; TEMP 36.6; O2SAT 97; BMI 27.8
--- NOTE | 2023-11-17 19:53 | PC.NURSE ---
PC to [facility] for hand specialist
[2023-11-17 20:00] VITALS: BP 119/70; PULSE 95; O2SAT 95
--- NOTE | 2023-11-17 20:34 | HMH.EDGENADL ---
Discharge Plan Disposition Patient Disposition: Home, Self-Care Condition: Good Prescriptions Prescriptions: No Action levothyroxine 75 mcg capsule 75 mcg PO DAILY nabumetone 500 mg tablet 500 mg PO BID Hold Instructions: Resume on 09/29/19. Can restart if needed after finishing the anticoagulants (Xarelto). Referrals Follow up/Referrals: Khurram Melendez MD [Primary Care Provider] - See instructions Activity Restrictions/Add. Instructions Additional Instructions/Restrictions: You were evaluated in the emergency department today for jerry to your hands. Please keep your hands clean and dry. Expect that the blisters will pop and come off on their own. Apply soft dressings to the wounds daily to keep them dry. Do not submerge under any water. We are giving you bacitracin, which is an antibiotic ointment, free to apply to the wounds once the blisters have opened up. We would like for you to follow-up in plastic surgery burn clinic at [facility]. This is at [facility]. They will contact you with an appointment. Take Tylenol and ibuprofen at home as needed for pain. Return to the emergency department for new or worsening symptoms. Clinical Impressions Clinical Impression: 2nd deg burn hand Qualifiers: Encounter type: initial encounter Burn of hand location: multiple sites Instructions Patient Instructions: How to Take Care of a Burn, DI for Jerry, Jerry Discharge ED Provider: Rima Carter General Adult HPI General Chief complaint: Burn/Smoke Inhalation Stated complaint: AO 11/17, right hand jerry Time Seen by Provider: 11/17/23 19:29 Mode of Arrival: Ambulatory Source of Information: Patient Limitations: No Limitations Description of Symptoms (Recalled from ER Triage Doc. by RN): Pt ambulatory to ED with C/O burn to right hand and left index finger. Pt states she was cooking peanut brittle, poured baking soda in, and the liquid boiled over onto her hands. Pt immediately applied silver sulfadiazine to burned areas. Pt reports mild burning pain. History of Present Illness HPI narrative: This patient is a 73-year-old female with a history of hypothyroidism presenting to the emergency department for evaluation with concern for jerry to both of her hands. Patient reports that she was cooking peanut brittle when she poured baking soda and into the portal pulled over onto her hands. She suffered jerry to her right palm/thumb and her left index finger. She is right-hand dominant. She applied silver sulfadiazine at home to the burned areas. She currently complains of mild burning pain. No other injuries noted. No numbness, tingling, or issues with range of motion. She was well prior to this. Related Data Home Medications Medication Instructions Recorded Confirmed levothyroxine 75 mcg capsule 75 mcg PO DAILY thyroid 03/31/19 08/25/21 nabumetone 500 mg tablet 500 mg PO BID Arthritis 03/31/19 08/25/21 Allergies Allergy/AdvReac Type Severity Reaction Status Date / Time No Known Allergies Allergy Verified 08/25/21 10:39 [facility] Disclaimer: The information contained in this section may have been updated after the patient was seen, as this information can be updated by other users. Social History Smoking Status: Never smoker second hand exposure: No alcohol intake: never substance use type: denies use current occupational status: retired Travel in the last 8 weeks: None household members: spouse housing: house current occupational exposures/hazards: No caffeine: Yes ROS Obtained: Yes All systems reviewed & no additional complaints except as documented Physical Exam General General appearance: alert and in no apparent distress Head Head exam: atraumatic and normocephalic Eye Eye exam: Present normal appearance, PERRL and EOMI ENT ENT exam: Present normal exam, normal oropharynx, mucous membr
[2023-11-17 20:59] VITALS: BP 119/70; PULSE 98; RESP 18; TEMP 36.8; O2SAT 96
--- NOTE | 2023-11-18 12:18 | PC.NURSE ---
pt called stating I was supposed to be called today for an appointment in [place], but they haven't called yet . Reviewed the chart and pt is supposed to see Plastic Surgery/Hand specialist. Face-sheet was faxed to [facility] yesterday. I called hand speciality and they states the earliest appt they have is 11/26/23 @ 1020a. I called Ms Veira back and gave her the contact information for hand team and the appt date/time.
== END 2023-11-17 21:00 | disposition home or self-care (01) ==
PROVIDERS: Emergency Provider Emergency Medicine; PCP Family Medicine
DX: T23.191A Burn of first degree of multiple sites of right wrist and hand, initial encounter (principal); T23.192A Burn of first degree of multiple sites of left wrist and hand, initial encounter; E03.9 Hypothyroidism, unspecified; X10.1XXA Contact with hot food, initial encounter; Z23 Encounter for immunization
CPT/HCPCS: 90471; 90715; 99284

== ENCOUNTER 2025-01-11 10:37 | Outpatient (CLI) | payer MEDICARE, SELFPAY ==
--- NOTE | 2025-01-11 10:44 | XR_ITS ---
FINAL REPORT CLINICAL HISTORY: INJURY OF LEFT SHOULDER, FELL DOWN STAIRS ON 01/05 AND HAS HAD SHOULDER PAIN SINCE FALL COMPARISON: None FINDINGS: 3 views of the left shoulder show no evidence of acute displaced fracture or dislocation of the visualized bony architecture. The joint spaces appear normal. IMPRESSION: Unremarkable exam. Reviewed, Interpreted and Dictated by Raya Bates MD Transcribed by Cammie Narayan Authenticated and . [facility]
--- NOTE | 2025-01-11 10:53 | XR_ITS ---
FINAL REPORT CLINICAL HISTORY: LEFT SIDED CHEST WALL PAIN, FELL DOWN STAIRS ON 01/05 AND HAS HAD LEFT SIDED CHEST WALL PAIN SINCE FALL COMPARISON: None FINDINGS: No acute pulmonary density is evident. There is no evidence of effusion or other pleural disease. The mediastinum has a normal appearance. The cardiac silhouette is unremarkable. IMPRESSION: Unremarkable chest exam. Reviewed, Interpreted and Dictated by Raya Bates MD Transcribed by Cammie Narayan Authenticated and [facility]
== END 2025-01-11 23:59 | disposition home or self-care (01) ==
LOC: RAD 10:41
PROVIDERS: PCP Physician Assistant; Visit Provider Physician Assistant
DX: R07.89 Other chest pain (principal); M25.512 Pain in left shoulder; S49.92XA Unspecified injury of left shoulder and upper arm, initial encounter
CPT/HCPCS: 71046; 73030

== ENCOUNTER 2025-02-04 10:35 | Outpatient (CLI) | payer MEDICARE, SELFPAY ==
[2025-02-04 20:37] LABS: Coronavirus 19, PCR Not Detected (NotDetected); Influenza B, PCR Not Detected (NotDetected)
[2025-02-04 21:26] LABS: Influenza A, PCR Detected (NotDetected)
== END 2025-02-04 23:59 | disposition home or self-care (01) ==
LOC: LAB.DROPOF 02-05 16:34
PROVIDERS: PCP Student in an Organized Health Care Education/Training Program; Visit Provider Student in an Organized Health Care Education/Training Program
DX: R50.9 Fever, unspecified (principal); R68.89 Other general symptoms and signs; Z20.828 Contact with and (suspected) exposure to other viral communicable diseases
CPT/HCPCS: 87636

== ENCOUNTER 2025-07-12 09:00 | Outpatient (CLI) | payer MEDICARE, SELFPAY ==
--- OUTSIDE RECORDS SUMMARY | 2025-02-05 12:15 | XMS_ITS ---
[facility] [address] [facility] [address] [place] [id number] Care Team Providers Care Cartography/Mapping Technician Name Role Phone Khurram Melendez Primary Care Provider Allergies No Known Allergies REASON FOR VISIT diagnosed with flu at [facility] yesterday Encounters Encounter Location Date Provider Diagnosis [place] [address] [facility] [address] [place] [id number] 02/05/2025 Khurram Melendez Plan Of Treatment Next Appt Details Provider Name:Khurram Hwang ry, 01/07/2026 10:00:00 AM, [address], [place], [phone], Progress Notes * LARRY HERMANADOB:1950 ( 75 yo F)Acc No.[id number]:02/05/2025 Progress Notes Patient: HORTENCIA GARCIA Provider: Isra Melendez M.D. :1950 A ge:74 Y S ex:Female Date:02/05/2025 Address:[address], [place] Subjective: * Chief Complaints: * 1 . diagnosed with flu at [facility] yesterday. * ROS: D ERMATOLOGY: no R alysa. n o H ahsan. G ASTROENTEROLOGY: no N ausea. n o V omiting. U ROLOGY: no D ifficulty urinating. n o B lood in urine. * Medical History: H ypothyroidism, Osteoarthritis, Breast Cancer, Dx at age 36, Hyperlipidemia, Colon Polyps, Dx: 2020. * Surgical History: A ppendectomy 1969, Cholecystectomy 1975, LT Mastectomy- [facility] 1985, Hysterectomy- [facility] 1993, RT Knee Surgery- [facility] 1999, RT Breast Lumpectomy 12/2017, LT Knee Replacement 08/2019, Colonoscopy 2020. * Hospitalization/Major Diagno stic Procedure: A ppendectomy- [facility] 1969, Fall and Hit Head- [facility] ER 03/2020. * Family History: F ather: , lymphoma. M other: , angina, heart attack. S iblings: Sisters-, bone cancer, lung cancer, breast cancerSister- cancerSister- breast cancer. 1 brother(s) , 3 sister(s) . 2 son(s) - healthy. . * Social History: C URRENT TOBACCO USE S moking Status: Patient does NOT smoke. C affeine: yes, frequency: 4 cups a day. Exercise: yes, wellness center 3 times a week. Marital Status: . Past smoking status: no. Alcohol: No. Sexually active: yes. * Allergies: N .K.D.A. Objective: * Vitals: Assessment: Plan: * Treatment: * Images: Billing Information: * Visit Code: * Procedure Codes: * Electronic signature of Mela Melendez MD on 07/12/2025 at 09:04 AM EDT Sign off status: Pending * Provider: Isra Melendez M.D. Date: 0 02/05/2025 Generated for Rob fatima/Sharon/Gildardo on: 0 07/12/2025 09:04 AM EDT
--- OUTSIDE RECORDS SUMMARY | 2025-06-06 06:15 | XMS_ITS ---
Author Organization [place] Address [address] [facility] [address] [place] [id number] Care Team Providers Care Radiation Control Specialist Name Role Phone Nora Khurram Primary Care Provider Allergies No Known Allergies REASON FOR VISIT 3 month checkup with labs Medications Medication SIG (Take, Route, Frequency, Duration) Notes Start Date End Date Status Nabumetone 500 MG 2 tab(s) orally once a day; Duration: 90 days Active Crestor 10 MG 1 tab(s) orally once a day 01/27/2023 Active Levothyroxine Sodium 75 MCG 1 tab(s) ora lly once a day Active Vital Signs Weight 182.4 lbs 06/06/2025 Blood pressure systolic 118 mm Hg 06/06/20 25 Blood pressure diastolic 70 mm Hg 025 Heart Rate 84 /min 06/06/2025 Height 67.50 in 06/06/2025 BMI 28.14 kg/m2 06/06/2025 Encounters Encounter Location Date Provider Diagnosis [place] [address] [facility] [address] [place] [id number] 06/06/2025 Khurram Melendez Acquired hypothyroid ism E03.9 ; Pure hypercholesterolemia E78.00 and BMI 28.0-28.9,adult Z68.28 Assessments Encounter Date Diagnosis (ICD Code) Assessment Notes Treatment Notes Treatment Clinical Notes Section Notes 06/06/2025 Acquired hypothyroid ism (ICD-10 - E03.9) 06/06/2025 Pure hypercholesterolemia (ICD-10 - E78.00) 06/06/2025 BMI 28.0-28.9,adult (ICD-10 - Z68.28) Plan Of Treatment Medication Medication Name Sig Start Date Stop Date Notes Crestor 10 MG 1 tab(s) orally once a day 01/27/2023 Levothyroxine Sodium 75 MCG 1 tab(s) orally once a day Next Appt Details Follow Up: 7 Months fasting, Reason: Provider Name:Khurram Hwang ry, 01/07/2026 10:00:00 AM, [address] [facility] [address], [place], [place], [phone], Progress Notes * LARRY HERMANADOB:1950 ( 75 yo F)Acc No.[id number]:06/06/2025 Progress Notes Patient: HORTENCIA GARCIA Provider: Isra Melendez M.D. :1950 A ge:75 Y S ex:Female Date:06/06/2025 Address:[address], [facility] Subjective: * Chief Complaints: * 1 . 3 month checkup with labs. * HPI: E ndocrinology: 75 year old female presents with c/o Hypothyroidism h ere for recheck today. * ROS: D ERMATOLOGY: no R alysa. n o H ahsan. G ASTROENTEROLOGY: no N ausea. n o V omiting. U ROLOGY: no D ifficulty urinating. n o B lood in urine. * Medical History: H ypothyroidism, Osteoarthritis, Breast Cancer, Dx at age 36, Hyperlipidemia, Colon Polyps, Dx: 2020. * Surgical History: A ppendectomy 1969, Cholecystectomy 1975, LT Mastectomy- [facility] 1985, Hysterectomy- [facility] 1993, RT Knee Surgery- [facility] 1999, RT Breast Lumpectomy 12/2017, LT Knee Replacement 08/2019, Colonoscopy 2020. * Hospitalization/Major Diagno stic Procedure: A ppendectomy- [facility] 1969, Fall and Hit Head- [facility] ER 03/2020. * Family History: F ather: , lymphoma. M other: , angina, heart attack. S iblings: Sisters-, bone cancer, lung cancer, breast cancerSister- cancerSister- breast cancer. 1 brother(s) , 3 sister(s) . 2 son(s) - healthy. . * Social History: C URRENT TOBACCO USE: No . C affeine: yes, frequency: 4 cups a day. Exercise: yes, wellness center 3 times a week. Marital Status: . Past smoking status: no. Alcohol: No. Sexually active: yes. * Medications: T aking Crestor 10 MG Tablet 1 tab(s) orally once a day , Taking Levothyroxine Sodium 75 MCG Tablet 1 tab(s) orally once a day , Taking Nabumetone 500 MG Tablet 2 tab(s) orally once a day , Discontinued Mupirocin 2 % Ointment 1 application Externally Twice a day , Discontinued Medrol 4 MG Tablet Therapy Pack as directed orally daily , Medication List reviewed and reconciled with the patient * Allergies: N .K.D.A. Objective: * Vitals: W t: 182.4, Temp: 97.8, BP: 118/70, HR: 84, Nurse: shakir, Ht: 67.50, BMI:28.14. * Examination: G eneral Examination: General Appearance: N AD. H eart: R SR. L ungs:?clear to auscultation. Assessment: * Assessment: 1. A cquired hypothyroidism - E03.9 (Primary) 2 . P ure hypercholesterolemia - E78.00 3 . B PR 28.0-28.9,adult - Z68.28 Plan: * Treatment: 2. P ure hypercholesterolemia Continue Crestor Tablet, 10 MG, 1 tab(s), orally, once a day. * Procedure Codes: G 2211 Complex e/m visit add on, 1036F TOBACCO NON-USER, G8420 BMI<30 AND >=22 CALC & DOCU, G8783 BP SCR PRFRM RCMDD DEFIND SCR INTVL, G8752 MOST RECENT SYSTOLIC BP < 140MM HG, G8754 MOST RECENT DIASTOLIC BP < 90MM HG * Follow Up: 7 Months fasting * Images: Billing Information: * Visit Code: 78655 Office Visit, Est Pt., Level 3. * Procedure Codes: G2211 Complex e/m visit add on. 1036F TOBACCO NON-USER. G8420 BMI<30 AND >=22 CALC & DOCU. G8783 BP SCR PRFRM RCMDD DEFIND SCR INTVL. G8752 MOST RECENT SYSTOLIC BP < 140MM HG. G8754 MOST RECENT DIASTOLIC BP < 90MM HG. * Electronic signature of Mela Melendez MD on 07/12/2025 at 09:03 AM EDT Sign off status: Pending * Provider: Isra Melendez M.D. Date: 0 06/06/2025 Generated for Rob fatima/Sharon/Maria Isabelitting on: 0 07/12/2025 09:03 AM EDT History and Physical Notes * HPI (History of Present Illness) Category Sub-Category Detail Notes Category Not es Endocrinology Hypothyroidism here for recheck today Examination Category Sub-Category Detail Notes Category Not es General Examination Heart: RSR Lungs: clear to auscultatio n General Appearance: NAD
--- OUTSIDE RECORDS SUMMARY | 2025-06-12 06:28 | XMS_ITS ---
[facility] [address] [facility] [address] [place] [id number] Care Team Providers Care Bottle Blower Name Role Phone Khurram Melendez Primary Care Provider REASON FOR VISIT due dexa Encounters Encounter Location Date Provider Diagnosis [place] [address] [place] [id number] 06/12/2025 Khurram Melendez Screening for osteoporosis Z13.820 Assessments Encounter Date Diagnosis (ICD Code) Assessment Notes Treatment Notes Treatment Clinical Notes Section Notes 06/12/2025 Screening for osteoporosis (ICD-10 - Z13.820) Plan Of Treatment Pending Test Test Name Order Date Bone density 06/12/2025 Next Appt Details Provider Name:Khurram Hwang ry, 01/07/2026 10:00:00 AM, [address] [facility] [address], [place], [id number], Progress Notes * SIOBHAN HERMANB:1950 ( 75 yo F)Acc No.[id number]:06/12/2025 Patient: HORTENCIA GARCIA :1950 A ge:75 Y S ex:Female Address:[address] [place] [address] Subjective: * Chief Complaints: * D ue dexa * Medical History: * Surgical History: * Hospitalization/Major Diagno stic Procedure: * Medications: Objective: * Vitals: * Physical Examination: Assessment: * Assessment: 1. S creening for osteoporosis - Z13.820 (Primary) Plan: * Treatment: * Procedure Codes: * true * Date: Generated for Rob fatima/Sharon/Gildardo on: 0 07/12/2025 09:04 AM EDT
--- NOTE | 2025-07-12 09:03 | XR_ITS ---
FINAL REPORT TECHNIQUE: Bone densitometry calculations of the lumbar spine and bilateral hips were obtained. CLINICAL HISTORY: SCREENING COMPARISON: None FINDINGS: Using L1-4, the bone mineral density of the spine is 0.779 g/cm2, corresponding to T-score of -2.4 and a Z score of 0.1. This is within the range of osteopenia. Using the left hip, the bone mineral density of the femoral neck is 0.679 g/cm2, corresponding to a T-score of -2.2 and a Z-score of -0.3. This is within the range of osteopenia. Using the right hip, the bone mineral density of the femoral neck is 0.579 g/cm?, corresponding to a T-score of -2.4 and a Z-score of -0.3. This is within the range of osteopenia. NOTE: T-score: Standard deviation compared with peak bone mass of young adult mean. *Following the recommendations of the International Society of Bone densitometry, classification of hip BMD is based on the lower of two T-scores; total hip or femoral neck. IMPRESSION: 1. Bone mineral density of the lumbar spine within the range of osteopenia. 2. Bone mineral density of the bilateral femoral necks within the range of osteopenia. Reviewed, Interpreted and Dictated by Luna Kearns MD Transcribed by Thelma Anton Authenticated and [facility]
--- OUTSIDE RECORDS SUMMARY | 2025-07-12 09:04 | XMS_ITS | Patient Health Record ---
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 Name Role Phone Khurram Melendez Primary Care Provider [phone] Violeta Michelle Unavailable [phone] Allergies No Known Allergies Results Component Value Reference Range Notes CXR Reviewed date:01/12/2025 08:34:26 AM Interpretation: Performing Lab: Notes/Report: X ray : Shoulder, left Reviewed date:01/12/2025 08:34:08 AM Interpretation: Performing Lab: Notes/Report: P-TSH Reviewed date:01/17/2025 12:43:20 PM Interpretation: Performing Lab: Notes/Report: Test performed by [facility] [address] [place], [place] [address] [employer] , [address], [place] [address] Ezequiel Sanchez MD, Business Applications Manager CLIA: [id number] TSH 2.02 0.43-5.25 mU/L P-Lipid Panel Reviewed date:01/17/2025 12:43:20 PM Interpretation: Performing Lab: Notes/Report: Test performed by [facility] [address] [place], [place] [address] [address] , [address], [place] [address] Ezequiel Sanchez MD, Business Applications Manager CLIA: [id number] Cholesterol 146 <200 mg/dL Triglycerides 120 <150 mg/dL HDL Cholesterol 66 >39 mg/dL Cholesterol / HDL Ratio 2.21 0.00-4.44 Ratio Non-HDL Cholesterol 80 <130 mg/dL LDL Cholesterol (Calculation) 56 <130 mg/dL LDL Cholesterol Levels* Less than 100 mg/dL Optimal 100 to 129 mg/dL Near Optimal/ Above Optimal 130 to 159 mg/dL Borderline High 160 to 189 mg/dL High 190 mg/dL and above Very High * Categories as recommended by the 2004 ATPIII guidelines LDL/HDL Ratio 0.8 <3.3 Ratio LDL Cholesterol Patient History Test Date: 05/06/2023 LDL Results: 63 Units: mg/dL % Change: - Test Date: 01/11/2025 LDL Results: 56 Units: mg/dL % Change: -11% P-T4 Free (thyroxine) Reviewed date:01/17/2025 12:43:20 PM Interpretation: Performing Lab: Notes/Report: Test performed by [facility] , [address], [place] [address] Ezequiel Sanchez MD, Business Applications Manager CLIA: [id number] Thyroxine Free (free T4) 1.29 0.86-1.76 ng/dL P-Comprehensive Metabolic Pa chris (CMP) Reviewed date:01/17/2025 12:43:20 PM Interpretation: Performing Lab: Notes/Report: Test performed by [facility], [address] , [address], [place] [address] Ezequiel Sanchez MD, Business Applications Manager CLIA: [id number] Sodium 141 135-145 mmol/L Potassium 3.9 3.5-5.3 mmol/L Chloride 103 97-108 mmol/L CO2 27 22-32 mmol/L Glucose 107 65-99 mg/dL BUN 15 8-23 mg/dL Creatinine 0.77 0.50-1.00 mg/dL Calcium 9.7 8.6-10.4 mg/dL eGFR by Creatinine 80 >59 mL/min/1.73m2 Protein 6.7 6.0-8.3 g/dL Albumin 4.8 3.5-5.3 g/dL Alkaline Phosphatase 84 35-121 IU/L ALT (SGPT) 17 <5-47 IU/L AST (SGOT) 15 <5-40 IU/L Bilirubin, Total 0.8 <0.2-1.2 mg/dL A/G Ratio 2.5 1.1-2.5 Reason For Referral No Information Medications Medication SIG (Take, Route, Frequency, Duration) Notes Start Date End Date Status Crestor 10 MG 1 tablet Orally Once a day; Duration: 90 days 01/27/2023 Active Nabumetone 500 MG 2 tab(s) orally once a day; Duration: 90 days Active Levothyroxine Sodium 75 MCG 1 tab(s) ora lly once a day Active Immunizations Vaccine Route Administration Date Status Comme nts COVID 19 Moderna Unknown 01/01/2021 Administered COVID 19 Moderna Unknown 01/29/2021 Administered COVID 19 Moderna Unknown 10/15/2021 Administered Fluzone High Dose (65yr and older) Unknown 09/15/2021 Pending Fluzone PF Quad (6-35 months) Unknown 09/13/2019 Administered Fluzone Quad-Medicare (6months&older) IM Intramuscular 01/08/2017 Administered PNEUMOVAX 23 VACCINE IM Intramuscular 01/08/2017 Administe red Shingrix Unknown 11/30/2022 Administered Shingrix Unknown 03/15/2023 Administered Tetanus Tdap-Adacel (over 7yrs) Unknown 11/17/2023 Administered Problems Problem Type SNOMED Code ICD Code Onset Dates Problem Status W/U Status Risk Notes Problem Psoriasis (6915263) Psoriasis (L40.9) Active co nfirmed Problem Acquired hypothyroidism (946340561) Acquired hypothyroidism (E03.9) Active confirmed Problem Osteoarthritis of knee (343695976) Primary osteoarthritis of both knees (M17.0) Active confirmed Problem Osteoarthritis of knee (467320418) Primary osteoarthritis of left knee (M17.12) Active confirmed Problem Pure hypercholesterolemia (074244580) Pure hypercholesterolemia (E78.00) Active confirmed Vital Signs Heart Rate 84 /min 06/06/2025 Blood pressure diastolic 70 mm Hg 06/06/2025 Height 67.50 in 06/06/2025 Blood pressure systolic 118 mm Hg 06/06/2025 Weight 182.4 lbs 06/06/2025 BMI 28.14 kg/m2 06/06/2025 Encounters Encounter Location Date Provider Diagnosis [facility] [address] [place], [place] [id number] 01/11/2025 Violeta Crowdy Injury of left shoul zulema, initial encounter S49.92XA ; Left-sided chest wall pain R07.89 ; Acquired hypothyroidism E03.9 ; Pure hypercholesterolemia E78.00 and Primary osteoarthritis of both knees M17.0 [facility] [address] [place], [place] [id number] 06/06/2025 Khurram Austin Acquired hypothyroid ism E03.9 ; Pure hypercholesterolemia E78.00 and BMI 28.0-28.9,adult Z68.28 [facility] [address] [place], [place] [id number] 07/15/2024 Khurram Austin Pure hypercholestero lemia E78.00 [facility] [address] [place], [place] [id number] 08/18/2024 Khurram Austin [facility] [address] [facility] [address] [place], [place] [id number] 11/15/2024 Khurram Austin [facility] [address] [place], [place] [id number] 01/10/2025 Khurram Austin Pure hypercholestero lemia E78.00 [facility] [address] [place], [place] [id number] 01/17/2025 Khurram Austin [facility] [address] [place], [place] [id number] 02/23/2025 Khurram Austin [facility] [address] [place], [place] [id number] 05/29/2025 Khurram Austin [facility] [address] [place], [place] [id number] 06/12/2025 Khurram Austin Screening for osteop orosis Z13.820 [facility] [address] [place], [place] [id number] 07/11/2025 Khurram Austin Pure hypercholestero lemia E78.00 Assessments Encounter Date Diagnosis (ICD Code) Assessment Notes Treatment Notes Treatment Clinical Notes Section Notes 07/15/2024 Pure hypercholesterolemia (ICD-10 - E78.00) 01/10/2025 Pure hypercholesterolemia (ICD-10 - E78.00) 01/11/2025 Left-sided chest wal l pain (ICD-10 - R07.89) If no fracture is evident, will start on steroids for inflammation . She is already taking the nabumetone. 01/11/2025 Injury of left shoul zulema, initial encounter (ICD-10 - S49.92XA) 06/06/2025 Acquired hypothyroid ism (ICD-10 - E03.9) 06/06/2025 Pure hypercholesterolemia (ICD-10 - E78.00) 06/12/2025 Screening for osteoporosis (ICD-10 - Z13.820) 07/11/2025 Pure hypercholesterolemia (ICD-10 - E78.00) 06/06/2025 BMI 28.0-28.9,adult (ICD-10 - Z68.28) 01/11/2025 Acquired hypothyroid ism (ICD-10 - E03.9) 01/11/2025 Pure hypercholesterolemia (ICD-10 - E78.00) 01/11/2025 Primary osteoarthrit is of both knees (ICD-10 - M17.0) Plan Of Treatment Pending Test Test Name Order Date Bone density 06/12/2025 Next Appt Details Provider Name:Khurram Hwang ry, 01/07/2026 10:00:00 AM, [address], [address], [place], [id number], Insurance Providers Payer Name Payer Address Payer Phone Subscriber Number Group Number Insured Name Patient Relationship to Insured Coverage Start Date Coverage End Date MEDICARE PART B [address] [address] [place] [address] [id number] HORTENCIA HERMAN Self - patient is the insured [facility] [address] [place] [id number] [employer] Self - patient is the insured 7 Medications Administered Medication Instructions Date of Administration Dosage Notes Dexamethasone 11/26/2017 1 mL Bicillin CR 900/300 10/11/2018 [id number] units Medical (General) History Medical History History ICD Code Hypothyroidism Osteoarthritis Breast Cancer, Dx at age 36 Hyperlipidemia Colon Polyps, Dx: 2020 Surgical History Surgery Date(Month/Year) Appendectomy 1970 Cholecystectomy 1975 LT Mastectomy- [place] 1985 Hysterectomy- [facility] 1993 RT Knee Surgery- [facility] 1999 RT Breast Lumpectomy 12/2017 LT Knee Replacement 08/2019 Colonoscopy 2020 Hospitalization History Reason Date(Month/Year) Fall and Hit Head- [facility] ER 03/2020 Appendectomy- [facility] 1970
--- OUTSIDE RECORDS SUMMARY | 2025-07-12 09:04 | XMS_ITS | Clinical Summary ---
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 Name Role Phone Khurram Melendez MD Primary Care Provider [phone] Allergies No known active allergies Medications levothyroxine (Synthroid, Levoxyl) 75 MCG tablet 11/11/2023 Active nabumetone (Relafen) 500 MG tablet 11/11/2023 Active rosuvastatin (Crestor) 10 MG tablet 10/19/2023 Active bacitracin 500 UNIT/GM ointment Apply daily to right palm wound 14 g 11/26/2023 Active Social History Tobacco Use Types Packs/Day Years Used Date Smoking Tobacco: Never Smokeless Tobacco: Never Tobacco Cessation:Counseling Given: Not Answered PHQ-2 Answer Date Recorded Patient Health Questionnaire-2 Score 0 11/26/2023 Comments Unknown Sex and Gender Information Value Date Recorded Sex Assigned at Not on file Legal Sex Female 8:50 PM EDT Gender Identity Not on file Sexual Orientation Not on file Last Filed Vital Signs Vital Sign Reading Time Taken Comments Blood Pressure 133/78 12/24/2023 8:59 AM EST Pulse 74 12/24/2023 8:59 AM EST Temperature - - Respiratory Rate - - Oxygen Saturation 98% 12/24/2023 8:59 AM EST Inhaled Oxygen Concentration - - Weight 81.6 kg (180 lb) 12/24/2023 8:59 AM EST Height 170.2 cm (5' 7 ) 12/24/2023 8:59 AM EST Body Mass Index 28.19 12/24/2023 8:59 AM EST Plan of Treatment Health Maintenance Due Date Last Done Comments [facility]-Bone Density Scan 1948 [facility]-Hepatitis C Screening 1948 [facility]-Medicare Annual Wellness (AWV) 1948 [facility]-Infant/Child/Adol SDOH Screenings 1948 [facility]- SDOH Screenings 1966 [facility]-Adult SDOH Screenings 1966 [facility]-Pneumococcal Vaccine: 50 + Years (1 of 1 - PCV) 1998 [facility]-RSV Vaccine: 60+ Years o r (1 - 1-dose 75+ series) 2023 [id number] Vaccine (4 - 2023- season) 2024 10/15/2021, 01/29/2021, 01/01/2021 [facility]-Depression Screening 11/26/2024 11/26/2023 [facility]-Influenza Vaccine (#1) 07/30/202510/27, 09/13/2019 [facility]-DTaP,Tdap,and Td Vaccine s (2 - Td or Tdap) 11/17/2033 11/17/2023 [facility]-Zoster Vaccines Completed 03/15/2023, 11/30/2022 [facility]-Obesity Intervention Completed 024, 12/10/2023, 11/26/2023 HPV Vaccines Aged Out No longer eligi ble based on patient's age to complete this topic [facility]-HIB Vaccines Aged Out No longer e ligible based on patient's age to complete this topic [facility]-Hepatitis A Vaccines Aged Out No longer eligible based on patient's age to complete this topic [facility]-IPV Vaccines Aged Out No longer e ligible based on patient's age to complete this topic [facility]-Rotavirus Vaccines Aged Out No lo nger eligible based on patient's age to complete this [place] [address] [facility] Care Teams Railroad Dining Car Stewardess Relationship Specialty Start Date End Date Khurram Melendez MD [facility] [place] [address] PCP - General 11/24/23
== END 2025-07-12 23:59 | disposition home or self-care (01) ==
LOC: RAD 09:01
PROVIDERS: PCP Family Medicine; Visit Provider Family Medicine
DX: M85.852 Other specified disorders of bone density and structure, left thigh (principal); M85.851 Other specified disorders of bone density and structure, right thigh; M85.88 Other specified disorders of bone density and structure, other site; M81.0 Age-related osteoporosis without current pathological fracture
CPT/HCPCS: 77080